=== PATIENT | female | born 1985 | race African-American/Black ===

== ENCOUNTER 2017-01-25 12:53 | Emergency (ER) | payer MEDICARE, OTHER ==
--- NOTE | ~2017-01-25 | CR63 ---
[facility] A Service of [facility] RADIOLOGY TEXT RESULTS PATIENT: STEPHANIE LI LOCATION: CFTX : 89 UNIT #: [id number] AGE: [address]: Lily Estrada APRN SEX: F ORDER DR: [id number] [facility] [address] [place], [place] [address] [id number] E MR#: [id number] Acc #: [id number] NAME: STEPHANIE LI : 1985 SEX: F STUDY DATE/TIME: 01/25/2017 13:38 UNIT: [facility] ROOM: STUDY DESCRIPTION: CR Chest 2 View Attending Physician: Lily Estrada A.P.R.N. Referring Physician: Young Alicea M.D. Ordering Physician: Ed Gordy Yu M.D. Primary Care Physician: No Primary Care Physician MEDICAL IMAGING REPORT This report is preliminary unless electronic signature is present EXAM Chest, PA and lateral; 01/25/2017. HISTORY Cough and chest pain and shortness of breath today. Smoking history. FINDINGS PA and lateral examination of the chest upright shows a good expansion of the parenchyma with a normal distribution of the pulmonary vascularity. There is no indication of congestion, effusion, infiltrate, tumor, or nodular density. The pleural reflections and diaphragmatic contours are normal. The cardiac silhouette and mediastinal anatomy is within normal limits. IMPRESSION Normal PA and lateral chest. Dictated by... Chalo Lester M.D. THIS IS AN ELECTRONICALLY VERIFIED REPORT Chalo Lester M.D. at 01/26/2017 6:29 AM MATILDE/lima TD: 01/25/2017 15:55 JOB #: [id number] MEDICAL IMAGING REPORT Page 1 of 1 COPY
[~2017-01-25 12:53] MED LIST: ANEXSIA 7.5/3251 TA1 PO; BACTRIM DS TABL1 TA1 PO; DAKIN'S MODIF1000 ML EXT; LORTAB 5/500 TA1 TA1 PO; NAPROSYN500 MG PO; NORCO 10-325 TA1 TAB PO
== END 2017-01-25 14:35 | disposition home or self-care (01) ==
LOC: CFTX 12:53 → CED 12:53 → CFTX 13:34
DX: J06.9 Acute upper respiratory infection, unspecified (principal); F17.210 Nicotine dependence, cigarettes, uncomplicated; F25.9 Schizoaffective disorder, unspecified
CPT/HCPCS: 71020; 84703; 94640; 99285